=== PATIENT | male | born 1980 | race Caucasian/White ===

== ENCOUNTER 2022-11-15 17:05 | Inpatient (IN) | payer OTHER ==
[2022-11-15 17:26] VITALS: BMI 28.7
[2022-11-15] MEDS ORDERED: LOPERAMIDE HCL 2 MG CAPSULE PO PRN (19:51)
[2022-11-15] MEDS ORDERED: ACETAMINOPHEN 325 MG TABLET (FP) PO PRN (19:51)
[2022-11-15] MEDS ORDERED: COLLOIDAL OATMEAL 1 BAR EACH TP PRN (19:51)
[2022-11-15] MEDS ORDERED: BENZOCAINE/MENTHOL (CHLORASEPTIC ) LOZENGE MM PRN (19:51)
[2022-11-15] MEDS ORDERED: IBUPROFEN 400 MG TABLET (FP) PO PRN (19:51)
[2022-11-15] MEDS ORDERED: guaiFENesin 600 MG TABLET.ER (FP) PO PRN (19:51)
[2022-11-15] MEDS ORDERED: MAG HYDROX/AL HYDROX/SIMETH 30 ML UNIT-DOSE CUP PO PRN (19:51)
[2022-11-15] MEDS ORDERED: BENZONATATE 200 MG CAPSULE PO PRN (19:51)
[2022-11-15] MEDS ORDERED: NALOXONE HCL (KLOXXADO) 8 MG SPRAY NS PRN (19:51)
[2022-11-15] MEDS ORDERED: METHOCARBAMOL 500 MG TABLET PO PRN (19:51)
[2022-11-15] MEDS ORDERED: P-EPHED 60MG/TRIPROLIDI 2.5MG TABLET PO PRN (19:51)
[2022-11-15] MEDS ORDERED: AMMONIUM LACTATE 12% LOTION 225 GM BOTTLE TP PRN (19:51)
[2022-11-15] MEDS ORDERED: POLYETHYLENE GLYCOL (HEALTHYLAX) 3350 17 GM PACKET PO PRN (19:51)
[2022-11-15] MEDS ORDERED: NALOXONE HCL 0.4 MG/ML VIAL IVPUSH PRN (19:51)
[2022-11-15] MEDS ORDERED: IBUPROFEN 600 MG TABLET (FP) PO PRN (19:51)
[2022-11-15] MEDS ORDERED: MAGNESIUM HYDROX 2400MG/30ML ORAL SUSPENSION 30 ML CUP PO PRN (19:51)
[2022-11-15] MEDS ORDERED: hydrOXYzine PAMOATE 25 MG CAPSULE (FP) PO PRN (19:51)
[2022-11-15] MEDS ORDERED: CLINDAMYCIN HCL 300 MG CAPSULE PO SCH ×2 (20:00→22:00)
[2022-11-15] MEDS ORDERED: MELATONIN 5 MG TABLETS PO SCH (22:00)
[2022-11-15] MEDS: CLINDAMYCIN HCL 150 MG CAPSULE (FP) PO SCH (22:02)
[2022-11-15] MEDS: APIXABAN 5 MG TABLET PO SCH (22:02)
[2022-11-15] MEDS: THIAMINE HCL 100 MG TABLET (FP) PO SCH (22:02)
[2022-11-16] MEDS: CLINDAMYCIN HCL 150 MG CAPSULE (FP) PO SCH ×3 (07:27→21:44)
[2022-11-16] MEDS: methaDONE HCL 40 MG DISPERSABLE TABLET PO SCH (10:45)
[2022-11-16] MEDS: PRENATAL VITAMINS W/ FOLIC ACID TABLET (FP) PO SCH (10:45)
[2022-11-16] MEDS: APIXABAN 5 MG TABLET PO SCH ×2 (10:45→21:44)
[2022-11-16] MEDS: NICOTINE POLACRILEX 2 MG GUM BUC PRN ×2 (17:55→20:48)
[2022-11-16] MEDS: THIAMINE HCL 100 MG TABLET (FP) PO SCH (21:44)
[2022-11-16] MEDS ORDERED: SUVOREXANT 10 MG TABLET PO PRN (22:00)
[2022-11-17] MEDS: CLINDAMYCIN HCL 150 MG CAPSULE (FP) PO SCH ×3 (06:17→21:21)
[2022-11-17] MEDS: NICOTINE POLACRILEX 2 MG GUM BUC PRN ×5 (06:19→19:32)
[2022-11-17] MEDS: methaDONE HCL 40 MG DISPERSABLE TABLET PO SCH (06:19)
[2022-11-17] MEDS: PRENATAL VITAMINS W/ FOLIC ACID TABLET (FP) PO SCH (09:52)
[2022-11-17] MEDS: APIXABAN 5 MG TABLET PO SCH ×2 (09:52→21:21)
[2022-11-17] MEDS: THIAMINE HCL 100 MG TABLET (FP) PO SCH (21:21)
[2022-11-18] MEDS: methaDONE HCL 40 MG DISPERSABLE TABLET PO SCH (06:08)
[2022-11-18] MEDS: NICOTINE POLACRILEX 2 MG GUM BUC PRN ×5 (07:58→21:21)
[2022-11-18] MEDS: PRENATAL VITAMINS W/ FOLIC ACID TABLET (FP) PO SCH (09:48)
[2022-11-18] MEDS: APIXABAN 5 MG TABLET PO SCH ×2 (09:48→21:19)
[2022-11-18] MEDS: THIAMINE HCL 100 MG TABLET (FP) PO SCH (21:19)
[2022-11-18] MEDS: SUVOREXANT 15 MG TABLET PO PRN (21:20)
[2022-11-19] MEDS: methaDONE HCL 40 MG DISPERSABLE TABLET PO SCH (06:05)
[2022-11-19] MEDS: NICOTINE POLACRILEX 2 MG GUM BUC PRN ×6 (06:07→21:24)
[2022-11-19] MEDS: PRENATAL VITAMINS W/ FOLIC ACID TABLET (FP) PO SCH (09:51)
[2022-11-19] MEDS: APIXABAN 5 MG TABLET PO SCH ×2 (09:51→21:23)
[2022-11-19] MEDS: DOXYCYCLINE HYCLATE 100 MG TABLET PO SCH (17:37)
[2022-11-19] MEDS: SUVOREXANT 15 MG TABLET PO PRN (21:23)
[2022-11-19] MEDS: THIAMINE HCL 100 MG TABLET (FP) PO SCH (21:23)
[2022-11-19] MEDS ORDERED: CEPHALEXIN MONOHYDRATE 500 MG CAPSULE (UD) PO SCH (22:00)
[2022-11-20] MEDS: methaDONE HCL 40 MG DISPERSABLE TABLET PO SCH (06:30)
[2022-11-20] MEDS: DOXYCYCLINE HYCLATE 100 MG TABLET PO SCH ×2 (06:34→17:02)
[2022-11-20] MEDS: PRENATAL VITAMINS W/ FOLIC ACID TABLET (FP) PO SCH (10:08)
[2022-11-20] MEDS: APIXABAN 5 MG TABLET PO SCH ×2 (10:08→21:16)
[2022-11-20] MEDS: NICOTINE POLACRILEX 2 MG GUM BUC PRN ×5 (10:09→19:46)
[2022-11-20] MEDS: THIAMINE HCL 100 MG TABLET (FP) PO SCH (21:16)
[2022-11-21] MEDS: methaDONE HCL 40 MG DISPERSABLE TABLET PO SCH (05:53)
[2022-11-21] MEDS: DOXYCYCLINE HYCLATE 100 MG TABLET PO SCH ×2 (05:54→17:39)
[2022-11-21] MEDS: NICOTINE POLACRILEX 2 MG GUM BUC PRN ×5 (05:56→21:18)
[2022-11-21] MEDS: PRENATAL VITAMINS W/ FOLIC ACID TABLET (FP) PO SCH (09:39)
[2022-11-21] MEDS: APIXABAN 5 MG TABLET PO SCH ×2 (09:39→21:18)
[2022-11-21] MEDS: THIAMINE HCL 100 MG TABLET (FP) PO SCH (21:18)
[2022-11-21] MEDS: SUVOREXANT 15 MG TABLET PO PRN (21:18)
[2022-11-22] MEDS: DOXYCYCLINE HYCLATE 100 MG TABLET PO SCH ×2 (06:09→17:51)
[2022-11-22] MEDS: methaDONE HCL 40 MG DISPERSABLE TABLET PO SCH (06:09)
[2022-11-22] MEDS: NICOTINE POLACRILEX 2 MG GUM BUC PRN ×3 (06:12→17:28)
[2022-11-22] MEDS: APIXABAN 5 MG TABLET PO SCH ×2 (10:04→21:18)
[2022-11-22] MEDS: PRENATAL VITAMINS W/ FOLIC ACID TABLET (FP) PO SCH (10:04)
[2022-11-22] MEDS: NICOTINE 10 MG CARTRIDGE (INHALER) IH SCH (17:51)
[2022-11-22] MEDS: THIAMINE HCL 100 MG TABLET (FP) PO SCH (21:18)
[2022-11-22] MEDS: SUVOREXANT 15 MG TABLET PO PRN (21:19)
[2022-11-23] MEDS: DOXYCYCLINE HYCLATE 100 MG TABLET PO SCH ×2 (06:12→17:46)
[2022-11-23] MEDS: methaDONE HCL 40 MG DISPERSABLE TABLET PO SCH (06:12)
[2022-11-23] MEDS: PRENATAL VITAMINS W/ FOLIC ACID TABLET (FP) PO SCH (10:05)
[2022-11-23] MEDS: NICOTINE 10 MG CARTRIDGE (INHALER) IH SCH (10:05)
[2022-11-23] MEDS: APIXABAN 5 MG TABLET PO SCH ×2 (10:06→21:25)
[2022-11-23] MEDS ORDERED: BACITRACIN/POLYMYXIN B SULFATE 15 GM TUBE TP SCH (10:15)
[2022-11-23] MEDS ORDERED: NICOTINE 10 MG CARTRIDGE (INHALER) IH PRN (16:03)
[2022-11-23] MEDS: SUVOREXANT 15 MG TABLET PO PRN (21:25)
[2022-11-23] MEDS: THIAMINE HCL 100 MG TABLET (FP) PO SCH (21:25)
[2022-11-24] MEDS: methaDONE HCL 40 MG DISPERSABLE TABLET PO SCH (06:28)
[2022-11-24] MEDS: DOXYCYCLINE HYCLATE 100 MG TABLET PO SCH (06:29)
[2022-11-24] MEDS: APIXABAN 5 MG TABLET PO SCH ×2 (10:01→21:24)
[2022-11-24] MEDS: PRENATAL VITAMINS W/ FOLIC ACID TABLET (FP) PO SCH (10:01)
[2022-11-24] MEDS: NICOTINE 10 MG CARTRIDGE (INHALER) IH PRN ×2 (14:37→19:07)
[2022-11-24] MEDS: THIAMINE HCL 100 MG TABLET (FP) PO SCH (21:24)
[2022-11-24] MEDS: SUVOREXANT 15 MG TABLET PO PRN (21:24)
[2022-11-25] MEDS: methaDONE HCL 40 MG DISPERSABLE TABLET PO SCH (06:06)
[2022-11-25] MEDS: NICOTINE 10 MG CARTRIDGE (INHALER) IH PRN ×2 (08:36→19:09)
[2022-11-25] MEDS: APIXABAN 5 MG TABLET PO SCH ×2 (09:57→21:38)
[2022-11-25] MEDS: PRENATAL VITAMINS W/ FOLIC ACID TABLET (FP) PO SCH (09:57)
[2022-11-25] MEDS: THIAMINE HCL 100 MG TABLET (FP) PO SCH (21:36)
[2022-11-25] MEDS: SUVOREXANT 15 MG TABLET PO PRN (21:38)
[2022-11-26] MEDS: methaDONE HCL 40 MG DISPERSABLE TABLET PO SCH (06:13)
[2022-11-26] MEDS: NICOTINE 10 MG CARTRIDGE (INHALER) IH PRN ×2 (08:27→21:26)
[2022-11-26] MEDS: APIXABAN 5 MG TABLET PO SCH ×2 (09:56→21:26)
[2022-11-26] MEDS: PRENATAL VITAMINS W/ FOLIC ACID TABLET (FP) PO SCH (09:56)
[2022-11-26] MEDS: SUVOREXANT 15 MG TABLET PO PRN (21:26)
[2022-11-26] MEDS: THIAMINE HCL 100 MG TABLET (FP) PO SCH (21:26)
[2022-11-27] MEDS: methaDONE HCL 40 MG DISPERSABLE TABLET PO SCH (06:03)
[2022-11-27] MEDS: NICOTINE 10 MG CARTRIDGE (INHALER) IH PRN ×4 (06:05→21:18)
[2022-11-27] MEDS: PRENATAL VITAMINS W/ FOLIC ACID TABLET (FP) PO SCH (10:10)
[2022-11-27] MEDS: APIXABAN 5 MG TABLET PO SCH ×2 (10:10→21:18)
[2022-11-27] MEDS: SUVOREXANT 15 MG TABLET PO PRN (21:18)
[2022-11-27] MEDS: THIAMINE HCL 100 MG TABLET (FP) PO SCH (21:18)
[2022-11-28] MEDS: methaDONE HCL 40 MG DISPERSABLE TABLET PO SCH (06:16)
[2022-11-28] MEDS: NICOTINE 10 MG CARTRIDGE (INHALER) IH PRN ×4 (06:17→21:20)
[2022-11-28] MEDS: PRENATAL VITAMINS W/ FOLIC ACID TABLET (FP) PO SCH (10:02)
[2022-11-28] MEDS: APIXABAN 5 MG TABLET PO SCH ×2 (10:02→21:18)
[2022-11-28] MEDS: THIAMINE HCL 100 MG TABLET (FP) PO SCH (21:18)
[2022-11-28] MEDS: SUVOREXANT 15 MG TABLET PO PRN (21:19)
[2022-11-29] MEDS: methaDONE HCL 40 MG DISPERSABLE TABLET PO SCH (06:02)
[2022-11-29] MEDS: NICOTINE 10 MG CARTRIDGE (INHALER) IH PRN ×2 (06:04→09:22)
[2022-11-29 07:16] VITALS: BP 117/70; PULSE 60; RESP 16; TEMP 96.1
[2022-11-29] MEDS: PRENATAL VITAMINS W/ FOLIC ACID TABLET (FP) PO SCH (09:20)
[2022-11-29] MEDS: APIXABAN 5 MG TABLET PO SCH (09:21)
== END 2022-11-29 09:30 | disposition home or self-care (01) | DRG 772 ==
LOC: YASAS 17:05 → Y5N 20:37
PROVIDERS: ADMIT Allergy & Immunology; ATTEND Psychiatry & Neurology Pain Medicine
PROC: HZ42ZZZ Group Counseling for Substance Abuse Treatment, Cognitive-Behavioral (ICD-10-PCS; principal; 2022-11-15)
DX: F11.20 Opioid dependence, uncomplicated (principal); F14.20 Cocaine dependence, uncomplicated; F17.210 Nicotine dependence, cigarettes, uncomplicated; L03.115 Cellulitis of right lower limb; L73.2 Hidradenitis suppurativa; Z86.718 Personal history of other venous thrombosis and embolism; Z79.01 Long term (current) use of anticoagulants; Z88.0 Allergy status to penicillin; Z28.310 Unvaccinated for COVID-19; Z28.9 Immunization not carried out for unspecified reason
CPT/HCPCS: 0241U-QW; 36415; 73590-TC-LT-FY; 73590-TC-RT-FY; 73610-TC-LT-FY; 73610-TC-RT-FY; 73630-TC-LT; 73630-TC-RT-FY; 80053; 80307; 81003; 83735; 84100; 85025; 85027; 85610; 85651; 85730; 86140; 87086; 93005; 93010; 93970-TC; 99285-25; C9803-CS; G0378; U0003; U0005